=== PATIENT | female | born 1960 | race Two or more races ===

== ENCOUNTER 2025-01-06 09:05 | Day surgery (SDC) | payer OTHER, SELFPAY ==
[2025-01-05 08:52] VITALS: BMI 25.2
--- NOTE | 2025-01-05 09:15 | EKG_ITS ---
[facility] Test Date: 2025-01-05 Pat Name: ABEL Zunigapartment: Room: - Gender: Female Communications Engineer: CLIFFORD : 1960 Requested By: Trent Lagunas Order Number: [id number] Reading MD: Trent Lagunas Measurements Intervals [place] Rate: 78 P: 31 TX: 143 QRS: 44 QRSD: 91 T: 31 QT: 359 QTc: 410 Interpretive Statements SINUS RHYTHM POSSIBLE LEFT ATRIAL ENLARGEMENT [-0.1mV P WAVE IN V1/V2] INCOMPLETE RIGHT BUNDLE BRANCH BLOCK [90+ ms QRS DURATION, TERMINAL R IN V1/V2, 40+ ms S IN I/aVL/V4/V5/V6] SEPTAL MYOCARDIAL INFARCTION , PROBABLY OLD [40+ ms Q WAVE IN V1/V2] No previous ECG available for comparison /[id number]/[email or web address]/[id number].pdf
[2025-01-05 09:41] LABS: Basophils # (Auto) 0.1 Thou/mm3 (0.0-0.2); Basophils % (Auto) 1 % (0-2.5); Eosinophils # (Auto) 0.2 Thou/mm3 (0.0-0.5); Eosinophils % (Auto) 2 % (0-10); Hematocrit 39.3 % (36.0-46.0); Hemoglobin 13.1 g/dL (12.0-16.0); Immature Granulocytes % (Auto) 1 % (0-0); Immature Granulocytes Auto 0.07 Thou/mm3 (0.00-0.00); Lymphocytes # (Auto) 1.9 Thou/mm3 (1.0-4.8); Lymphocytes % (Auto) 20 % (10-50); Mean Corpuscular HGB Conc 33.3 g/dl (31.0-37.0); Mean Corpuscular Hemoglobin 28.8 pg (25.0-35.0); Mean Corpuscular Volume 86 fL (80-100); Monocytes # (Auto) 0.5 Thou/mm3 (0.0-0.8); Monocytes % (Auto) 5 % (0-12); Neutrophils # (Auto) 6.8 Thou/mm3 (1.8-7.7); Neutrophils % (Auto) 72 % (37-80); Nucleated Red Blood Cell % 0 /100 WBC (0); Platelet Count 300 Thou/mm3 (140-440); RDW Standard Deviation 42.2 fL (36.4-46.3); Red Blood Count 4.55 Miln/mm3 (4.00-5.20); White Blood Count 9.5 Thou/mm3 (3.6-11.0)
--- NOTE | 2025-01-05 16:51 | ESHP_ITS ---
RE: ABEL QUINTANILLA : 1960 DATE OF ADMISSION: 01/06/2025 HISTORY OF PRESENT ILLNESS: A 64-year-old female, presents with left-sided flank pain for 2 months and discomfort. There is no gross hematuria. CT scan revealed no stones. PAST SURGICAL HISTORY: She had hysterectomy. PAST MEDICAL HISTORY: She had sepsis and she had a moderate left hydronephrosis. There is a history of diabetes mellitus and history of hypertension. SOCIAL HISTORY: She has three children. MEDICATIONS: She takes; 1. Losartan. 2. Statin medications. 3. Jardiance. 4. Gabapentin. 5. Janumet. 6. Insulin. 7. Ozempic. ALLERGIES: NONE KNOWN. PHYSICAL EXAMINATION: HEENT: Normal. NECK: Supple. LUNGS: Clear. CARDIOVASCULAR: Heart sounds are normal. ABDOMEN: Soft without any organomegaly, no guarding or rigidity. EXTREMITIES: Normal. LABORATORY DATA: The patient had E. Coli UTI. Serum creatinine is 0.6. CT scan of the abdomen and pelvis revealed moderate left hydronephrosis, but no definite radiopaque calculi in the ureter. IMPRESSION: Left hydronephrosis. PLAN: Cystoscopy, left ureteroscopy, possible ureteral stent insertion. Planned procedure, risks, and complications have been discussed with the patient. The patient has understood them and agreed to proceed. DT: 16:12:54 TT: 16:49:00 Ref: [id number] - TID: [id number]
[2025-01-06] VITALS (9 sets, daily range): BP systolic 81–134; BP diastolic 50–66; PULSE 68–88; RESP 12–20; TEMP 36.4–36.8; O2SAT 95–100; BMI 31.3
--- NOTE | 2025-01-06 09:30 | CHAP ---
Had a prayer with patient.
--- NOTE | 2025-01-06 09:40 | SUR.PREOP ---
Dr. Reynoso made aware of bedside glucose levels of 47 and 53. Order received. Pt. states she feels fine and states her glucose is always low in the mornings because she takes her insulin and Janumet at night.
[2025-01-06] MEDS: DEXTROSE 50%-WATER INJ 50 ML SYRINGE 25 ML IV (09:48)
[2025-01-06 10:10] LABS: Alanine Aminotransferase 27 U/L (10-49); Albumin, Serum 4.4 gm/dL (3.4-4.8); Albumin/Globulin Ratio 1.8 (1.2-2.2); Alkaline Phosphatase 97 U/L (46-116); Anion Gap 7 (7-16); Aspartate Amino Transferase 32 U/L (0-34); BUN/Creatinine Ratio 28 Ratio (12-20); Bilirubin,Total 0.6 mg/dL (0.3-1.2); Blood Urea Nitrogen 17 mg/dL (9-23); Calcium 9.2 mg/dL (8.3-10.6); Calcium (Corrected) 9.2 mg/dL (8.5-10.1); Carbon Dioxide 26.1 mMol/L (20.0-31.0); Chloride 108 mMol/L (98-107); Creatinine (Component) 0.6 mg/dL (0.6-1.3); Estimated Creatinine Clearance 95.6 mL/min (>60); Globulin 2.5 gm/dL (2.3-3.5); Glucose 58 mg/dL (74-106); Osmolality,Calculated 280 (275-295); Sodium 141 mMol/L (136-145); Total Protein 6.9 gm/dL (5.7-8.2); eGFR > 60 See Note
--- NOTE | 2025-01-06 11:00 | XR_ITS ---
Examination: Retrograde pyelogram left with without KUB Fluoroscopy AP abdomen 2 views Date and time: January 06, 2025 1303 hours INDICATIONS: Ureteral stent placement today TECHNIQUE AND FINDINGS: 2 abdomen films obtained with opacification of the left renal collecting system Fluoroscopy 0.7 minute radiation dose 2.61 milligray IMPRESSION: Retrograde study as above
--- NOTE | 2025-01-06 12:20 | SUR.PHASEI ---
Addendum entered by Hanna Coppola RN 01/06/25 13:20: patients blood pressure low 81/50, anesthesia provider aware, orders to finish IV fluids, will monitor Original Note: 1220 Patient arrived to recovery resting comfortable in [facility], sleeping comfortably able to arouse, then drifts back to sleep, on oxygen 8L via oxy mask, breathing unlabored, vital signs stable, denies pain and nausea, report received from Dr. Rojas and James GARCIA
--- NOTE | 2025-01-06 12:45 | SUR.PHASEI ---
5677 patient sitting up in bed eating pudding, peanut butter, nelida crackers and drinking apple juice, Dr. Reynoso notified regarding patient low blood glucose, will continued to monitor patient
--- NOTE | 2025-01-06 13:05 | SUR.PHASEI ---
2208 patient ate a sandwich, chips, fruit and drinking cranberry juice, awake and shared she feels well, will continued to monitor patient
--- NOTE | 2025-01-06 13:47 | SUR.PHASEII ---
1347 patient meets discharge criteria from recovery, awake and alert, breathing unlabored, vital signs stable, denies pain and nausea, voided in the restroom prior to discharge, assisted with dressing into her clothing by her daughter, discharge instructions given to patient and patients daughter with the assistance of the telephone chief load dispatcher Mignon ID#[id number], daughter signed discharge instructions. Patient given all her belongings prior to discharge, transported via wheelchair and left in a private vehicle.
--- NOTE | 2025-01-06 16:30 | ESOP_ITS ---
RE: ABEL QUINTANILLA : 1960 DATE OF OPERATION: 01/06/2025 PREOPERATIVE DIAGNOSES: Left-sided flank pain. History of moderate left hydronephrosis. POSTOPERATIVE DIAGNOSES: Left-sided flank pain. History of moderate left hydronephrosis. PROCEDURES PERFORMED: Cystoscopy, left retrograde pyelogram and left ureteroscopy. ANESTHESIA: General by Dr. Reynoso. INDICATION: The patient is a 64-year-old female who has been complaining of left-sided flank pain for a few months. She had a left-sided mild to moderate hydronephrosis. There were no obvious radiopaque calculi in the ureter, but she continues to have pain, so she was now scheduled to have cystoscopy, left retrograde pyelogram, left ureteroscopy, and possible left ureteral stent insertion. Planned procedure, risks, and complications have been discussed with the patient. The patient understood them and agreed to proceed. DESCRIPTION OF PROCEDURE: After the patient was brought to the operating table under adequate general anesthesia given by Dr. Reynoso, she was placed in dorsal lithotomy position. Parts were prepped and draped in the usual fashion. Cystoscopy was then carried out, which revealed adequate urethral meatus, normal-appearing urethra, and bladder. Residual urine was about 4 ounces, yellow and clear, and was sent for culture and sensitivity examination. There are no intravesical stones or tumors. Ureteral orifices are found to be normal in position and appearance. Open-tip ureteral catheter was then introduced into the left ureteral orifice, and left retrograde pyelogram was then obtained. There was no evidence of any hydronephrosis on the retrograde pyelogram. With a small ultra-thin ureteroscope was then introduced into the left ureteral orifice and was advanced all the way up to the left kidney up to the left upper pole, and there was no evidence of any obstruction or stones or tumors. The scope was withdrawn. We did not put a ureteral stent in this patient because there was no evidence of any obstruction. The patient tolerated the entire procedure well and left the room in good condition. DT: 12:24:49 TT: 16:29:00 Ref: [id number] - TID: [id number]
== END 2025-01-06 13:47 | disposition home or self-care (01) ==
PROVIDERS: Anesthesiology; PCP Family Medicine; Referring Provider Surgery; Visit Provider Surgery
PROC: 0TJB8ZZ Inspection of Bladder, Via Natural or Artificial Opening Endoscopic (ICD-10-PCS; CPT 52000; principal; 2025-01-06 10:45)
DX: N13.30 Unspecified hydronephrosis (principal); E11.9 Type 2 diabetes mellitus without complications; I10 Essential (primary) hypertension; Z90.710 Acquired absence of both cervix and uterus; Z01.810 Encounter for preprocedural cardiovascular examination
CPT/HCPCS: 52351; 36415; 74420; 80053; 82947; 85025; 87086; 93005; A4217; A4649; C1894; J0694; J1100; J2250; J2405; J2704; J3010